=== PATIENT | male | born 1975 | race Caucasian/White ===

== ENCOUNTER 2023-07-05 20:45 | Emergency (ER) | payer OTHER, SELFPAY ==
[2023-07-05 20:53] VITALS: BP 179/110; BMI 31.2
[2023-07-05 21:04] LABS: Hematocrit 46.5 % (39.0-52.0); Hemoglobin 16.7 g/dL (13.0-18.0); Mean Corp Hgb Conc. 35.9 g/dL (33.0-37.0); Mean Corpuscular Hgb 30.4 pg (27.0-31.0); Mean Corpuscular Volume 84.7 fL (80.0-94.0); Red Blood Cell Count 5.49 10^6/uL (4.70-6.10); Red Cell Dist. Width 12.5 % (11.5-14.5); White Blood Cell Count 7.9 10^3/uL (4.8-10.8)
[2023-07-05 21:05] LABS: % Eosinophils 5.2 % (0-6); % Immature Granulocytes 0.3 % (0-0.5); % Lymphocytes 23.6 % (20.5-51.1); % Neutrophils 57.9 % (42.2-75.2); Absolute Basophils 0.1 10^3/uL (0-0.2); Absolute Eosinophils 0.4 10^3/uL (0-0.7); Absolute Lymphocytes 1.9 10^3/uL (1.2-3.4); Absolute Neutrophils 4.6 10^3/uL (1.4-6.5); Mean Platelet Volume 9.6 fL (7.4-10.4); Nucleated Red Blood Cells % 0 % (-); Platelet Count 210 10^3/uL (130-400)
[2023-07-05 21:24] LABS: ALT (SGPT) 35 U/L (0-50); AST (SGOT) 31 U/L (17-59); Albumin 4.5 g/dl (3.5-5.0); Alkaline Phosphatase 70 U/L (38-126); Blood Urea Nitrogen 20 mg/dl (9-20); Calcium 9.9 mg/dl (8.4-10.2); Carbon Dioxide 28 mmol/L (22-30); Chloride 99 mmol/L (98-107); Estimated Creatinine Clearance 93 ml/min; Glucose 104 mg/dl (70-99); Potassium 3.9 mmol/L (3.5-5.1); Sodium 136 mmol/L (135-145); Total Bilirubin 0.3 mg/dl (0.2-1.3); Total Protein 7.4 g/dl (6.3-8.2); eGFR > 60.00
[2023-07-05 21:29] LABS: Troponin I < 0.012 ng/ml
--- NOTE | 2023-07-05 21:57 | ED.GENMED ---
History of Present Illness
<Elizabet Murphy [facility] - Last Filed: 07/05/23 23:45>
General
Chief Complaint: Chest Pain
Source: patient and spouse
Time Seen by Provider: 07/05/23 21:57
Travel History
Have you had any contact with someone who has COVID-19?: No
Do you have any symptoms of coronavirus? Fever > 100 degrees, chills, cough, shortness of breath, sore throat, loss of taste or smell, muscle aches, or headache?: No
History of Present Illness
History of Present Illness:
Pt is 47 year old male with a PMHx of HTN and obstructive sleep apnea who is presenting for back and chest pain since this morning. He states he has had severe GERD previously that presented similarly but was concerned when he began having some mild
right jaw pain. He states the pain was mild this morning and started before he ate breakfast, starting in the center of his upper back. Pt recalls he had chicken fingers and ice cream for dinner last night. He notes it was relieved by working out on
his treadmill this morning but returned shortly after. The pain became more severe, rating it a 7-8/10, approximately 30 minutes after he ate a chicken taco around 6:30 pm. At this time the pain radiated around his left ribs, into his chest, and
into his right jaw. He admits to diaphoresis at that time and a systolic BP in the 170s. He states he took several Tums and two 81 mg aspirin around 10 pm prior to coming in. He reports his pain is no longer present. He denies nausea, vomiting,
shortness of breath, lower extremity pain or edema, burning or pain with urination, headache, or changes in vision. He states he has no PMHx of gallstones or pancreatitis, although he believes his sister had her gallbladder removed. He notes some of
his coworkers have an URI and he began having a mild cough since yesterday. Pt takes Losartan-HCTZ for his HTN (dosage unknown) and states his baseline BP runs around 140-150/80-90. He also takes TRT and anti-estrogen medications for low
testosterone. Pt notes he has a family history of SC in his father who in his 70s due to the SC. Pt states he has a smoking history since age 14 but is trying to quit, now vaping lower strength nicotine. Pt denies any recent travel.
Past History
<LISA Loera - Last Filed: 07/05/23 23:45>
Past History
ED Past Medical History: None, GERD and Other (obstructive sleep apnea)
ED Past Surgical History: None
Social History
Tobacco: Smoker
Employment: Employed
Family History
Family History: Other (SC - father )
Review of Systems
<LISA Loera - Last Filed: 07/05/23 23:45>
Review of Systems
Allergies reviewed?: Yes
All Other Systems: Not applicable
Constitutional: Reports no symptoms
EENT: Reports no symptoms
Respiratory: Reports cough
Cardiac: Reports chest pain and diaphoresis
ABD/GI: Reports diarrhea
: Reports no symptoms
Musculoskeletal: Reports back pain
Skin: Reports no symptoms
Neurological: Reports no symptoms
Endocrine: Reports no symptoms
Hematologic/Lymphatic: Reports no symptoms
Psychiatric: Reports no symptoms
Phy Exam
<LISA Loera - Last Filed: 07/05/23 23:45>
General Physical Exam
General Presentation: well appearing and no apparent distress
General age: appears stated age
General Skin: warm, dry and flushed
General Habitus: normal
General Mental: alert
General Hydration: appears well hydrated
ENT Exam
ENT Exam: EOMI and neck supple
Cardiovascular Exam
Cardiovascular Exam: regular rate/rhythm, no edema, no gallop, no murmur and normal peripheral pulses
Pulmonary Exam
Pulmonary Exam: lungs clear, no respiratory distress, no rales, chest non tender, no crackles, no rhonchi, no wheezing and no cough
Gastrointestinal Exam
Gastrointestinal Exam: normal bowel sounds, non tender, soft, no pulsatile mass, non distended and no cva tenderness
Neurological Exam
Neurological Exam: alert and oriented x3
Mental
Describe Speech: normal speech
Skin Exam
Skin Exam: warm/dry and redness (facial flushing)
Psychiatric Exam
Psychiatric Exam: normal mood/affect
<Cooper Gibson DO - Last Filed: 07/06/23 00:42>
Heart Score for Chest Pain Patients
STEMI patient?: No
History: Slightly or Non-Suspicious
ECG: Normal
Age: >45 - <65 years
Risk Factors: >/= 3 Risk Factors or History of CAD
Troponin: </= Normal Limit
Heart Score for Chest Pain Patients: 3
Heart Score Risk: 2.5% MACE over next 6 weeks
Course
<ST EvaristoPA - Last Filed: 07/05/23 23:45>
Orders/Labs/Results
Orders:
Orders
07/05/23 20:46
Electrocardiogram (*1) Urgent
Reason for Study: Chest Pain
EKG- Treatment ONCE
07/05/23 20:58
Complete Blood Count/With Diff Urgent
Comprehensive Metabolic Panel Urgent
Troponin I Urgent
07/05/23 21:11
CXR2 [CR Chest - 2 Views ] Urgent
Comment:
Reason For Exam: cp
07/05/23 23:54
Troponin I Urgent
Abnormal Lab Results
07/05/23
20:58
Absolute Monos (auto) 1.0 H 10^3/uL
(0.1-0.6)
Monocytes % 12.0 H %
(1.7-9.3)
Glucose 104 H mg/dl
(70-99)
07/05/23 20:58
07/05/23 20:58
Vital Signs
Initial and Last Documented VS:
Initial Vital Signs
Temp Pulse Resp BP Pulse Ox
98.3 F 90 20 179/110 96
07/05/23 20:53 07/05/23 20:53 07/05/23 20:53 07/05/23 20:53 07/05/23 20:53
Last Documented Vital Signs
Temp Pulse Resp BP Pulse Ox
98.3 F 90 20 179/110 96
07/05/23 20:53 07/05/23 20:53 07/05/23 20:53 07/05/23 20:53 07/05/23 20:53
<Cooper Gibson, DO - Last Filed: 07/06/23 00:42>
Orders/Labs/Results
Orders:
Orders
07/05/23 20:46
Electrocardiogram (*1) Urgent
Reason for Study: Chest Pain
EKG- Treatment ONCE
07/05/23 20:58
Complete Blood Count/With Diff Urgent
Comprehensive Metabolic Panel Urgent
Troponin I Urgent
07/05/23 21:11
CXR2 [CR Chest - 2 Views ] Urgent
Comment:
Reason For Exam: cp
07/05/23 23:54
Troponin I Urgent
Abnormal Lab Results
07/05/23
20:58
Absolute Monos (auto) 1.0 H 10^3/uL
(0.1-0.6)
Monocytes % 12.0 H %
(1.7-9.3)
Glucose 104 H mg/dl
(70-99)
07/05/23 20:58
07/05/23 20:58
Vital Signs
Initial and Last Documented VS:
Initial Vital Signs
Temp Pulse Resp BP Pulse Ox
98.3 F 90 20 179/110 96
07/05/23 20:53 07/05/23 20:53 07/05/23 20:53 07/05/23 20:53 07/05/23 20:53
Last Documented Vital Signs
Temp Pulse Resp BP Pulse Ox
98.3 F 90 20 179/110 96
07/05/23 20:53 07/05/23 20:53 07/05/23 20:53 07/05/23 20:53 07/05/23 20:53
<LISA Loera - Last Filed: 07/05/23 23:45>
MDM/Problems Addressed
Differential Diagnosis Includes:
GERD, SC, PE, cholelithiasis
MDM/Problems Addressed:
chest pain
Chronic conditions affecting care: HTN and Other (GERD)
<LISA Loera - Last Filed: 07/05/23 23:45>
*Critical Care Note
Total Time (30-74mins, 75-104mins- exclusive of procedures): Not Applicable
ED Attending Note
<LISA Loera - Last Filed: 07/05/23 23:45>
-
Portions of this chart may have been created with voice recognition software.� Occasional wrong word or��sound alike� substitutions may have occurred due to the inherent limitations of voice recognition software.
<Cooper Gibson DO - Last Filed: 07/06/23 00:42>
ED Attending Note
Patient seen and examined by attending physician: Yes
I performed the substantive portion of visit, reviewed & personally made and approve the management plan that is documented in note by myself or ATA.: Yes
ED Attending Note:
Is a pleasant 47-year-old male that presents with chest and back pain that is been present today. Patient states that he had mild pain this morning but had dinner at [employer]. He tried to pick something mild from the menu. He states that about
30 minutes after eating a chicken soft taco, he developed pain. It radiates through to his back. Patient states that it was severe and eventually radiated into his jaw. He came into the emergency department for evaluation. And route to the
hospital he took some Tums and his symptoms resolved spontaneously. Patient denies any current symptoms at this time. Patient was seen in conjunction with the PA student. I have reviewed and agree with the history and treatment plan presented.
On my independent physical exam, patient is awake, alert, and oriented x3, no acute distress. Heart is regular rate and rhythm. Lungs are clear to auscultation bilaterally without wheezes rales or rhonchi. Abdomen is soft and nondistended no
hepatosplenomegaly. Skin is warm and dry. There is erythema from the neck up which he attributes to rosacea.
Vital signs are stable. Patient not hypoxic
Nursing note reviewed. I agree with nursing documentation up to this point in time.
Home Meds and allergies reviewed.
NUMBER AND COMPLEXITY OF PROBLEMS ADDRESSED AT THE ENCOUNTER
� Chronic conditions affecting care: GERD
� Acute Exacerbation and/or Progression of Chronic Illness:
� Differential Diagnosis includes: ACS, GERD, musculoskeletal
AMOUNT AND/OR COMPLEXITY OF DATA TO BE REVIEWED AND ANALYZED
I performed an independent evaluation of the following and my interpretation is:
EKG: EKG shows normal sinus rhythm rate of 90 with normal intervals, left axis deviation. No evidence of acute ischemia present. No old EKG available for comparison.
CT:
X-rays: Chest x-ray is negative
Ultrasound:
Laboratory Studies: First troponin is negative
Other:
Review of other/old records: Stress echo 2019
�1.� Excellent exercise tolerance.� Patient exercised on a Quintin protocol 10:30
�(11.5 METs).�
�2.� The exercise electrocardiogram had no evidence of stress induced ischemia
�3.� Normal blood pressure and heart rate response
�4.� Stress echocardiographic images demonstrate no evidence of stress induced
�ischemia.
�5.� Low risk stress study
Clinical information was obtained by an independent historian:
Prescriptions/Medications Considered but not given:
Further testing considered but not performed:
RISK OF COMPLICATIONS AND/OR MORBIDITY OR MORTALITY OF PATIENT MANAGEMENT
Social determinants of health affecting care: Good Social Support
Discussion with other providers:
Escalation of care including admission/observation vs risk of discharge considered:
CRITICAL CARE NOTE:
Total Time (exclusive of procedures):
Update:
Discharge Plan
Departure
Patient Disposition: Home (Routine Discharge)
Date of Disposition: 07/06/23
Time of Disposition: 00:39
Patient with high blood pressure during this ER visit?: Yes
Condition: Good
Discharge Problem:
Chest pain
Instructions: Chest Pain PCP Follow Up, BLOOD PRESSURE
Referrals:
Julian Rosen, [Family Provider] -
Activity Restrictions/Additional Instructions:
It was a pleasure meeting you and taking part in your care. We hope for your continued healing and wellness.
Please read discharge instructions in their entirety. However, they are for general education and may not describe your exact diagnosis at discharge. Information on your ER visit and medical conditions were discussed with you along with appropriate
follow up information...
If indicated, please take your medications as instructed and indicated on discharge paperwork.
Please schedule a follow up appointment as directed. Call to schedule an appointment
Please return to the emergency department with ANY change in, persisting, or worsening of symptoms. If any of your symptoms do not improve, or persist, or become more severe within 6-12 hours, please return to the emergency department for further
care.
Please return to the emergency department if you develop a headache, neck pain/stiffness, fever greater than 100.4F, chest pain, shortness of breath, persistent nausea, vomiting, slurred speech, difficulty walking, numbness/tingling, weakness, signs
of infection or any other symptoms that are worrisome to you.
If you have any questions or concerns please do not hesitate to call the Hospital at or E-mail me directly at [email or web address]
Interventions
Interventions:
*Risk Screen - Suicide Last Done: 07/05/23 20:53
*General Assessment Last Done: 07/05/23 21:58
*Neglect/Abuse Screening Last Done: 07/05/23 20:53
ED- Fall Risk Assessment Last Done: 07/05/23 22:00
*ED COVID-19 Vaccine History Last Done: 07/05/23 20:53
ED- Cardiac Assessment Last Done: 07/05/23 23:16
[2023-07-06 00:37] LABS: Troponin I < 0.012 ng/ml
[2023-07-06 00:48] VITALS: BP 139/88
== END 2023-07-06 00:50 | disposition home or self-care (01) ==
LOC: EMR 20:45
PROVIDERS: Emergency Medicine; EMERGENCY PHYSICIAN Student in an Organized Health Care Education/Training Program; FAMILY PHYSICIAN Family Medicine
DX: R07.89 Other chest pain (principal); I10 Essential (primary) hypertension; G47.33 Obstructive sleep apnea (adult) (pediatric); F17.200 Nicotine dependence, unspecified, uncomplicated; K21.9 Gastro-esophageal reflux disease without esophagitis; R03.0 Elevated blood-pressure reading, without diagnosis of hypertension
CPT/HCPCS: 99285; 71046; 80053; 84484; 85025; 93005